=== PATIENT | female | born 1995 | race Native Hawaiian/Other Pacific Islander ===

== ENCOUNTER 2024-01-23 15:57 | Outpatient (CLI) | payer BC, SELFPAY ==
[2024-01-23 16:23] LABS: Basophils Absolute Auto 0.1 K/mm3 (0.0-0.1); Basophils Percent Auto 0.7 % (0.2-1.2); Eosinophils Absolute Auto 0.1 K/mm3 (0-0.3); Eosinophils Percent Auto 1.7 % (0-4.4); Hematocrit 38.9 % (37.0-47.0); Hemoglobin 13.5 g/dL (12.0-15.0); Immature Granulocyte Absolute 0.03 K/mm3 (0.00-0.031); Immature Granulocyte Percent A 0.4 % (0-0.5); Lymphocytes Absolute Auto 2.52 K/mm3 (0.9-3.2); Lymphocytes Percent Auto 33.1 % (18.3-44.2); Mean Corpuscular HGB Conc 34.7 g/dl (32-36); Mean Corpuscular Hemoglobin 30.1 pg (26-34); Mean Corpuscular Volume 86.8 fl (80-100); Monocytes Absolute Auto 0.5 K/mm3 (0.1-0.6); Monocytes Percent Auto 6.6 % (2.6-8.5); Neutrophils Absolute Auto 4.4 K/mm3 (1.3-6.7); Neutrophils Percent Auto 57.5 % (45.5-73.1); Platelet Count Result 276 k/mm3 (150-375); Red Blood Count 4.48 M/mm3 (4.2-5.4); Red Cell Distribution Width 12.2 % (11.5-14.5); White Blood Count 7.6 K/mm3 (4.5-10.0)
[2024-01-23 16:56] LABS: Beta HCG Quantitative 226.77 mIU/ML
[2024-01-23 17:19] LABS: HIV 1/2 Ab P24 Ag Result Negative (Negative)
[2024-01-23 18:33] LABS: Hepatitis B Surface Antigen Negative (Negative); Rubella IgG Antibody 10.3 IU/ML
[2024-01-24 07:17] LABS: Rapid Plasma Reagin Non-Reactive (NonReactive)
[2024-01-24 13:13] LABS: CMV IgG Antibody >10.00 U/mL; Varicella IgG Antibody 5.32 S/CO
== END 2024-01-23 15:58 | disposition home or self-care (01) ==
LOC: ANHLAB 15:59
PROVIDERS: PCP Student in an Organized Health Care Education/Training Program; Visit Provider Student in an Organized Health Care Education/Training Program
DX: N94.89 Other specified conditions associated with female genital organs and menstrual cycle (principal)
CPT/HCPCS: 36415; 84702; 85025; 86592; 86644; 86703; 86747; 86762; 86787; 86850; 86900; 86901; 87086; 87340; G0432

== ENCOUNTER 2024-01-25 14:23 | Outpatient (CLI) | payer BC, SELFPAY ==
[2024-01-25 15:14] LABS: Beta HCG Quantitative 494.89 mIU/ML
== END 2024-01-25 14:24 | disposition home or self-care (01) ==
LOC: ANHLAB 14:24
PROVIDERS: PCP Student in an Organized Health Care Education/Training Program; Visit Provider Student in an Organized Health Care Education/Training Program
DX: N91.2 Amenorrhea, unspecified (principal)
CPT/HCPCS: 36415; 84702

== ENCOUNTER 2024-07-10 08:33 | Outpatient (CLI) | payer BC, SELFPAY ==
--- OUTSIDE RECORDS SUMMARY | 2024-07-10 08:53 | XMS_ITS | Clinical Summary ---
Author Organization [facility] Address [address] [place] [address] Phone Care Team Providers Care Accreditation Manager Name Role Phone JohannMercy ruiz Juliana CASTRO, JOSE Primary Care Provider [phone] Allergies Active Allergy Reactions Criticality Noted Date Comments Amoxicillin Hives 09/01/2023 Medications ibuprofen (MOTRIN) 800 MG Tablet Take 800 mg by mouth every 8 hours as needed. 4 Active doxycycline monohydrate 100 MG Tablet Take 100 mg by mouth 2 times daily. 4 Active ofloxacin (FLOXIN) 0.3 % Solution Place 5 Drops in affected ear(s) 2 times daily. 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 Urgent Care Visit [facility] [place] [address] [place] [address] Olga Wilks APRN, JOSE Influenza A (Primary Dx); Body aches; Fever, unspecified fever cause Discharge Disposition: Discharged to home or Selfcare 05/29/2024 Travel from Last 3 Months Family History Medical History Relation Name Comments No Known Problems Father No Known Problems Mother Relation Name Status Comments Father Alive Mother Alive Social History Tobacco Use Types Packs/Day Years Used Date Smoking Tobacco: Former Cigarettes Smokeless Tobacco: Never Alcohol Use Standard Drinks/Week Comments Not Currently 0 (1 standard drink = 0.6 oz pur e alcohol) [facility] Utilities Answer Date Recorded In the past 12 months has e electric, gas, oil, or water company threatened to shut off services in your home? No 08/31/2023 Social Connection and Isolat ion Panel [NHANES] Answer Date Recorded In a typical week, how many times do you talk on the phone with family, friends, or neighbors? More than three times a week 08/31/2023 How often do you get togethe r with friends or relatives? Three times a week 08/31/2023 How often do you attend chur ch or bahai services? More than 4 times per year 08/31/2023 Do you belong to any clubs o r organizations such as congregation groups, unions, fraternal or athletic groups, or school groups? Yes 08/31/2023 How often do you attend meet ings of the clubs or organizations you belong to? More than 4 times per year 08/31/2023 Are you , , di vorced, , never , or living with a partner? 08/31/2023 AUDIT-C Answer Date Recorded Q1: How often do you have a drink containing alcohol? Never 08/31/2023 Q2: How many drinks containi ng alcohol do you have on a typical day when you are drinking? Patient does not drink Q3: How often do you have si x or more drinks on one occasion? Never 08/31/2023 Overall Financial Resource Strain (CARDIA) Answe r Date Recorded How hard is it for you to pa y for the very basics like food, housing, medical care, and heating? Not hard at all 08/31/2023 PHQ-2 Answer Date Recorded Total Score - Questions 1-9 0 09/2023 [facility] Occupat ional [facility] - Occupational Stress Questionnaire Answer Date Recorded Do you feel stress - tense, restless, nervous, or anxious, or unable to sleep at night because your mind is troubled all the time - these days? Not at all 08/31/2023 Exercise Vital Sign Answer Date Recorde d On average, how many days pe r week do you engage in moderate to strenuous exercise (like a brisk walk)? 2 days 08/31/2023 On average, how many minutes do you engage in exercise at this level? 60 min 08/31/2023 Hunger Vital Sign Answer Date Recorded Within the past 12 months, y ou worried that your food would run out before you got the money to buy more. Never true 08/31/19 24 Within the past 12 months, t he food you bought just didn't last and you didn't have money to get more. Never true 08/31/2023 PRAPARE - Transportation Answer Date Re corded In the past 12 months, has l ack of transportation kept you from medical appointments or from getting medications? No 08/2023 In the past 12 months, has l ack of transportation kept you from meetings, work, or from getting things needed for daily living? No 08/31/2023 Housing Stability Vital Sign Answer Tj e Recorded In the last 12 months, was t here a time when you were not able to pay the mortgage or rent on time? No 08/31/2023 In the last 12 months, how many places have you lived? 1 08/31/2023 In the last 12 months, was t here a time when you did not have a steady place to sleep or slept in a alf (including now)? 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 Gender Identity Not on file Sexual Orientation Not on file Last Filed Vital Signs Vital Sign Reading Time Taken Comments Blood Pressure 112/62 05/29/2024 5:06 PM RUG DRYING MACHINE OPERATOR Pulse 117 05/29/2024 5:06 PM RUG DRYING MACHINE OPERATOR Temperature 36.3 C (97.4 F) 05/29/2024 5:06 PM RUG DRYING MACHINE OPERATOR Respiratory Rate 18 05/29/2024 5:06 PM RUG DRYING MACHINE OPERATOR Oxygen Saturation 97% 05/29/2024 5:06 PM RUG DRYING MACHINE OPERATOR Inhaled Oxygen Concentration - - Weight 86.2 kg (190 lb) 09/01/2023 7:59 AM CDT Height 160 cm (5' 3 ) 09/01/2023 7:59 AM CDT Body Mass Index 33.66 09/01/2023 7:59 AM CDT Plan of Treatment Health Maintenance Due Date Last Done Comments Hepatitis C Virus (HCV) Screening 1994 TdaP Immunization 1994 Hepatitis B Immunization (1 of 3 - 19+ 3-dose series) 2013 Pap Smear 06/22/2015 SARS-COV-2 Immunization ( season) 2023 Cervical Cancer Screening (CCS) 2024 HPV/Cotest 2024 Influenza Immunization (Seas on Ended) 2024 Respiratory Syncytial Virus (RSV) Immunization (Adult) (1 - 1-dose 75+ series) 2069 Meningococcal Immunization (ACWY) Aged Out No longer eligible based on patient's age to complete this topic Pneumococcal Immunization Combined Aged Out No longer eligible based on patient's age to complete this topic Rotavirus Immunization Aged Out No lo nger eligible based on patient's age to complete this topic Procedures Procedure Name Priority Date/Time Associated Diagnosis Comments POC INFLUENZA A AND B BY MOLECULAR Routine 05/29/2024 5:14 PM RUG DRYING MACHINE OPERATOR Body aches Fever, unspecified fever cause POC SARS-COV-2 BY MOLECULAR Routine 05/29/2024 5:14 PM RUG DRYING MACHINE OPERATOR Body aches Fever, unspecified fever cause from Last 3 Months Results * POC SARS-COV-2 BY MOLECULAR (05/29/2024 5:14 PM RUG DRYING MACHINE OPERATOR) SARSCOV2 Negative Negative, INVALID PROCEDURE CONTROL Valid 05/29/2024 5:14 PM RUG DRYING MACHINE OPERATOR Olga Wilks APRN, WAFER FABRICATION TECHNICIAN POINT OF CARE TEST ING (MANUAL) Final Result * (ABNORMAL) POC INFLUENZA A AND B BY MOLECULAR (05/29/2024 5:14 PM RUG DRYING MACHINE OPERATOR) INFLUENZA A RNA Positive(A) Negative, Invalid INFLUENZA B RNA Negative Negative, Invalid PROCEDURE CONTROL Valid 05/29/2024 5:14 PM RUG DRYING MACHINE OPERATOR Olga Wilks APRN, WAFER FABRICATION TECHNICIAN POINT OF CARE TEST ING (MANUAL) Final Result from Last 3 Months Insurance [facility] [place] [address] [facility] Care Teams Accreditation Manager Relationship Specialty Start Date End Date Mercy Wills, NATURAL GAS INSPECTOR, WAFER FABRICATION TECHNICIAN [address] [id number] PCP - General Certified Nurse Practitioner 09/01/23
--- OUTSIDE RECORDS SUMMARY | 2024-07-10 08:53 | XMS_ITS | Continuity of Care Document ---
Author Organization [facility] Address [address] [place] [address] Phone Care Team Providers Care Design Assistant Name Role Phone MD GODFREY JENNIFER Unavailable Unavaila ble Allergies, Adverse Reactions, Alerts Substance Reaction Status Criticality amoxicillin Active No Information Medications Medication Instructions Dosage Effective Dates (start - stop) Status Comments Vitamin 27 mg iron-0.8 mg tablet - Active Procedures Procedure Date REPEAT ULTRASOUND COMPREHENSIVE DETAILED ULTRASOUND EST PT, LOW VISIT COMPLETE OB US Advance Directives Directive Yes / No Effective Date File Name No Information Encounters Encounter Description Practice Location Reason(s) For Visit Diagnoses Date Provider Providers Copied on Encounter [facility], [address] [place] [address] [address], [address], [place] tel:[phone] [facility] BOW STAPLER (chief complaint) prev. (chief complaint) Screening follow-up, Non-visualize d anatomy on a previous scanWeeks Gestation of PregnancyPrev ious , unspecified scarObesity complicating pregnancyMat care for (susp) central nerv system malformation in fetusOther obesity 2 MD ALYSSA GODFREY. [address] [place], [address], [place]. tel:[phone] Referring Provider: Sandy [address], [place], [address]. tel:[phone] EST PT, LOW VISIT [facility], [address] [place] [address], [facility], [place] tel:[phone] [facility] CPCs (chief complaint) Prev C/S (chief complaint) Supervision of high risk , 2nd trimesterWeek s Gestation of PregnancyMat care for (susp) central nerv system malformation in fetusOther obesityPrevio us , unspecified scarObesity complicating 2 MD ALYSSA GODFREY. [address] [place] [address], [facility], [place]. tel:[phone] Referring Provider: Sandy [address], [place], [address]. tel:[phone] [facility] [address] [place] [address], [facility], [place] tel:[phone] [facility] Weeks Gestation of PregnancyEnco unter for screening for malformations 1 MD ALYSSA GODFREY. [address] [place] [address], [facility], [place]. tel:[phone] Referring Provider: Sandy [address], [place], [address]. tel:[phone] Family History Family Member Type Diagnosis Age At Onset No Information Payers Payer name Insurance type Covered green party ID Authoriza tion(s) [id number] [facility] [id number] Social History Type Description Quantity Date Captured Comments Alcohol Use Details Unknown Caffeine Use Details Unknown Tobacco Use Status Current non-smoker Smoking Status Never smoker Sex Female Yes - Patient is cur rently Vital Signs Date / Time: Height Weight BMI Pulse Rate Blood Pressure Temperature Respiratory Rate Body Surface Area Head Circumference BMI percentile Pulse Ox Inhaled Ox 5:35 PM 63.00 in 82.100 kg (181.00 lbs) 32.0 6 kg/m eter (2) 71 /min 100/71 mm[Hg] 94.10 F Chief Complaint And Reason For Visit From encounter dated '10/22/2021 09:30'. BOW STAPLER (chief complaint) prev. (chief complaint) History Of Present Illness Encounter Date Complaint History Of Prese nt Illness BOW STAPLER prev. Prev C/S CPCs A consultation w as provided due to the ultrasound finding of choroid plexus cysts. Instructions Date Instruction Additional Infor mation - US: Growth in 4 we eks- US: Repeat anatomic evaluation in 4 weeks Related to Weeks Gestation of Assessments Type Assessment Date assessment Weeks Gestation of Sep assessment Screening follow-up, Non-visuali zed anatomy on a previous scan assessment Obesity complicating J assessment Mat care for (susp) central nerv system malformation in fetus assessment Previous , unspecified scar assessment Other obesity
[2024-07-10 09:54] LABS: Basophils Percent Auto 0.5 % (0.2-1.2); Eosinophils Absolute Auto 0.1 K/mm3 (0-0.3); Hematocrit 37.7 % (37.0-47.0); Hemoglobin 12.4 g/dL (12.0-15.0); Immature Granulocyte Absolute 0.12 K/mm3 (0.00-0.031); Immature Granulocyte Percent A 1.5 % (0-0.5); Lymphocytes Absolute Auto 1.27 K/mm3 (0.9-3.2); Lymphocytes Percent Auto 15.8 % (18.3-44.2); Mean Corpuscular HGB Conc 32.9 g/dl (32-36); Mean Corpuscular Volume 94.3 fl (80-100); Mean Platelet Volume 9.1 fl (7.4-10.4); Monocytes Absolute Auto 0.5 K/mm3 (0.1-0.6); Monocytes Percent Auto 5.6 % (2.6-8.5); Neutrophils Absolute Auto 6.1 K/mm3 (1.3-6.7); Neutrophils Percent Auto 75.6 % (45.5-73.1); Platelet Count Result 227 k/mm3 (150-375)
[2024-07-10 11:09] LABS: Glucose 1 Hour PP 50gm Dose 100 mg/dL
[2024-07-10 12:22] LABS: Syphilis IgG/IgM Antibody Negative (Negative)
[2024-07-10 16:26] LABS: HIV 1/2 Ab P24 Ag Result Negative (Negative)
== END 2024-07-10 08:34 | disposition home or self-care (01) ==
LOC: ANHLAB 08:36
PROVIDERS: Visit Provider Obstetrics & Gynecology
DX: Z34.90 Encounter for supervision of normal pregnancy, unspecified, unspecified trimester (principal)
CPT/HCPCS: 36415; 82947; 85025; 86593; 86703; G0432